=== PATIENT | female | born 1945 | race Caucasian/White ===

== ENCOUNTER → 2017-06-05 | Outpatient (CLI) | payer MEDICARE ==
[~2017-06-05] MED LIST: ATOR10; HYDR1TAB94 PO
[2017-06-06 14:54] LABS: Source ENDOCER/CERV
== END | disposition home or self-care (01) ==
LOC: LAB 14:30
PROVIDERS: Family Medicine
DX: Z12.4 Encounter for screening for malignant neoplasm of cervix (principal)
CPT/HCPCS: G0145

== ENCOUNTER 2018-03-31 06:58 | Day surgery (SDC) | payer MEDICARE | END 2018-03-31 13:38 | disposition home or self-care (01) | LOC: ORSCMMR 06:58 → ORD 08:30 → ORSCMMR 08:30 | PROVIDERS: Orthopaedic Surgery | PROC: 0PSJ04Z Reposition Left Radius with Internal Fixation Device, Open Approach (ICD-10-PCS; principal; 2018-03-31 08:30) | DX: S52.502A Unspecified fracture of the lower end of left radius, initial encounter for closed fracture (principal); Z79.899 Other long term (current) drug therapy; Z87.891 Personal history of nicotine dependence | CPT/HCPCS: C1713; J0690; J1100; J2250; J2405; J3010; J7120 ==

== ENCOUNTER → 2020-03-15 | Outpatient (CLI) | payer MEDICARE, OTHER | END | disposition home or self-care (01) | LOC: PLD 08:07 → LAB SHORT 08:07 | DX: C44.329 Squamous cell carcinoma of skin of other parts of face (principal); C44.712 Basal cell carcinoma of skin of right lower limb, including hip | CPT/HCPCS: 88305 ==

== ENCOUNTER → 2020-04-19 | Outpatient (CLI) | payer MEDICARE, OTHER | LOC: LAB SHORT 15:01 → PLD 15:01 | DX: L57.0 Actinic keratosis (principal) | CPT/HCPCS: 88305 ==

== ENCOUNTER 2022-01-17 15:09 | Observation (INO) | payer MEDICARE, OTHER ==
[~2022-01-17] VITALS: Ht 162.6 cm; Wt 78.1 kg
[2022-01-17 20:58] LABS: BASOPHILS ABSOLUTE AUTO 0.01 K/mm3 (0.00-0.23); BASOPHILS PERCENT AUTO 0 % (0-2); EOSINOPHILS PERCENT AUTO 0 % (0-6); Hematocrit 42.1 % (33.0-51.0); Hemoglobin 14.3 g/dL (11.5-16.0); IMMATURE GRAN ABSOLUTE AUTO 0.02 K/mm3 (0.00-0.10); IMMATURE GRAN PERCENT AUTO 0 % (0-1); LYMPHOCYTES ABSOLUTE AUTO 0.91 K/mm3 (0.84-5.20); LYMPHOCYTES PERCENT AUTO 10 % (21-46); MONOCYTES ABSOLUTE AUTO 0.47 K/mm3 (0.16-1.47); MONOCYTES PERCENT AUTO 5 % (4-13); Mean Corpuscular HGB 31.7 pg (26.0-34.0); Mean Corpuscular Volume 93 fL (80-100); Mean Platelet Volume 11.3 fL (9.1-12.4); NEUTROPHILS ABSOLUTE AUTO 8.17 K/mm3 (1.96-9.15); NEUTROPHILS PERCENT AUTO 85 % (41-73); Platelet Count 248 K/mm3 (150-400); RDW Coefficient Variation 12.2 % (11.7-14.2); RDW Standard Deviation 42.5 fL (35.1-46.3); Red Blood Cell Count 4.51 M/mm3 (3.80-5.20); White Blood Cell Count 9.58 K/mm3 (4.00-11.30)
[2022-01-17 21:12] LABS: Bun/Creatinine Ratio 23.1 (12.0-20.0); Calcium, Blood 9.6 mg/dL (8.5-10.1); Creatinine, Blood 0.87 mg/dL (0.40-1.00); Globulin, Blood 3.9 g/dL (2.2-4.0); Potassium, Blood 4.2 mmol/L (3.5-5.5); Total Protein, Blood 7.9 g/dL (6.4-8.2)
[2022-01-17 23:33] LABS: Source, Urine Clean Catch
[2022-01-17 23:43] LABS: Bilirubin, Urine Neg (Neg); Blood, Urine 1+ (Neg); Glucose Qualitative, Urine Neg (Neg); Ketones, Urine 2+ (Neg); Leukocyte Esterase, Urine 1+ (Neg); Nitrite, Urine Neg (Neg); Protein, Urine 1+ (Neg); Specific Gravity, Urine 1.025 (1.003-1.022); Urobilinogen, Urine NORM (Normal)
[2022-01-17 23:52] LABS: Appearance, Urine Clear (Clear); Color, Urine Yellow (P-Yellow)
[2022-01-17 23:53] LABS: Amorphous Light (0-Heavy); Bacteria Few /hpf; Mucus Light (0-Heavy); Red Blood Cells, Urine 0-2 /hpf (0-2); Squamous Epithelial Cells Few /hpf (Few)
--- NOTE | 2022-01-18 04:13 | NUR ---
NEW PATIENT THIS SHIFT. PT ARRRIVED TO THE FLOOR AT 0030 WITH STABLE VS, A/OX4 AND BEING NPO. NO DISTRESS NOTED. PRE SURGICAL WASHDOWN COMPLETED. PT HAS SLEPT WELL T/O THE NIGHT. PT HAS NOT COMPLAIN OF ANY N/V SINCE ARRIVING TO THE FLOOR. THE PT HAS NOT REQUIRED PAIN MEDICATION UP TO THIS POINT. INDEPENDENT IN THE ROOM AND VOIDING W/O DIFFICULTY. PT IS CURRENTLY SLEEPING, IN NO DISTRESS.
[2022-01-18 05:17] LABS: Influenza A, PCR NEGATIVE (NEGATIVE); Influenza B, PCR NEGATIVE (NEGATIVE); Resp Syncytial Virus, PCR NEGATIVE (NEGATIVE); SARS-Cov-2 (COVID-19) PCR, MMC NEGATIVE (NEGATIVE)
--- NOTE | 2022-01-18 08:04 | NUR ---
TO DAY SURGERY VIA CART
--- NOTE | 2022-01-18 08:12 | NUR ---
INTO SDS ADMISSION STARTED TO UNIT. VERIFIES NPO STATUS BEFORE MIDNIGHT. IMPLANT IN LEFT WRIST.
--- NOTE | 2022-01-18 11:27 | NUR ---
1015 returned to room post op. abd lap sites x4 with dermabond, no drainage. biox 86% on room air-oxygen applied at 2 l nc and patient instructed on tcdb. pt reports right shoulder pain and is grasping her shoulder-pt repositioned and medicated for pain. telephone call made to pts to update on pt status
--- NOTE | 2022-01-18 14:45 | NUR ---
UP TO BATHROOM WITH 1 PERSON ASSIST, PT SUDDENLY TEARFUL AND ASKS THAT I TELL HER HOW HER SURGERY WENT AND IF SHE WILL STATY IN HOSPITAL TONIGHT. TALKED WITH PATIENT REGARDING HER SURGERY AND PATIENTS QUESTIONS ANSWERED
--- NOTE | 2022-01-18 17:07 | NUR ---
PT REPORTS PAIN IS CONTROLLED AT 3/10 TO ABD AND REPORTS MINIMAL PAIN TO RIGHT SHOULDER. PT ALERT AND ORIENTED THOUGH HAS ASKED SEVERAL TIMES IF SURGERY WENT OK AND WHAT WAS DONE , PT USES CALL LIGHT TO CALL FOR ASSIST. PEPE PO FLUIDS WITHOUT NAUSEA. ABD INCISIONS X4 INTACT WITHOUT DRAINAGE
--- NOTE | 2022-01-18 17:46 | NUR ---
pt reports increase in pain, medicated with roxicodone. pt denies nausea. taking small amounts of regular diet
--- NOTE | 2022-01-19 06:41 | NUR ---
POD 1 S/P LAP LISA. PT VSS T/O NIGHT. INCISIONS CDI. PAIN MGD W/OXYCODONE AND TYLENOL W/REP RELIEF. PT PEPE REG PO, DENIED N/V, REP NOT PASSING FLATUS YET. PT AMB INDEP IN ROOM, PEPE WELL. PLAN TO D/C HOME TODAY.
[2022-01-19] MEDS ORDERED: OXYC5 PO (10:43)
--- NOTE | 2022-01-19 12:15 | NUR ---
DISCHARGE SUMMARY PATIENT ALERT AND ORIENTED THROUGHOUT AM. TOLERATING REGULAR DIET AND LIQUIDS. DENIES NAUSEA. ABD MOD DIS AND TENDER, PAIN CONTROLLED WITH PO PAIN MEDS. VOIDING WELL. LAP SITES C/D/I. REPORTS GAS, NO BM AT THIS TIME. AMBULATING IN HALLS. DISCHARGE ORDERS GIVEN. DISCHARGE EDUCATION GIVEN ON NEW MEDS, ACTIVITY, WOUND CARE, DIET, AND FOLLOW UP APPTS. IV DC'D WNL. PATIENT LEFT UNIT AT 1200 VIA WHEELCHAIR WITH SPOUSE FOR HOME.
== END 2022-01-19 11:55 | disposition home or self-care (01) ==
LOC: ER 15:09 → SURS 15:10
PROVIDERS: Emergency Medicine; Student in an Organized Health Care Education/Training Program; ADMIT Surgery
DX: K81.2 Acute cholecystitis with chronic cholecystitis (principal); E78.5 Hyperlipidemia, unspecified; Z88.2 Allergy status to sulfonamides; Z79.899 Other long term (current) drug therapy; Z20.822 Contact with and (suspected) exposure to COVID-19
CPT/HCPCS: 0241U; 74177; 74300; 80053; 81001; 83690; 85025; 87086; 88304; 93005; 93010; 96365-59; 96372; 96375; 99285-25; A9270; C1729; G0378; J0295; J1100; J1170; J1650; J2250; J2370; J2405; J2704; J2795; J3010; J7030; J7120; Q9967

== ENCOUNTER → 2023-01-14 | Outpatient (CLI) | payer MEDICARE, OTHER ==
[~2023-01-14] MED LIST changes: +OXYC5 PO
[2023-01-18 16:08] LABS: HPV 16 Negative (Negative); HPV 18 Negative (Negative); HPV OTHER HR TYPES Negative (Negative)
== END ==
LOC: LAB SHORT 15:43 → LAB 15:43
PROVIDERS: Family Medicine
DX: Z12.4 Encounter for screening for malignant neoplasm of cervix (principal)
CPT/HCPCS: 87624; 88175

== ENCOUNTER → 2023-04-02 | Outpatient (CLI) | payer MEDICARE, OTHER | END | disposition home or self-care (01) | LOC: LAB SHORT 12:57 → PLD 12:57 | DX: C44.319 Basal cell carcinoma of skin of other parts of face (principal) | CPT/HCPCS: 88305 ==

== ENCOUNTER → 2023-05-01 | Outpatient (CLI) | payer MEDICARE, OTHER | LOC: LAB SHORT 10:06 → LAB 10:06 | DX: L82.1 Other seborrheic keratosis (principal) | CPT/HCPCS: 88305 ==